=== PATIENT | male | born 1985 | race Caucasian/White ===

== ENCOUNTER 2021-10-21 21:20 | Inpatient (IN) | payer OTHER ==
[~2021-10-21] VITALS: Ht 182.9 cm; Wt 69.5 kg
[2021-10-21 22:19] LABS: HEMOGLOBIN 12.5 gm/dl (14.0-17.5); RED BLOOD COUNT 4.07 M/UL (4.20-5.50)
[2021-10-21 22:46] LABS: BUN/CREATININE RATIO 18 (0-10)
[2021-10-22 05:38] LABS: BUN/CREATININE RATIO 15 (0-10)
[2021-10-23 06:00] LABS: HEMOGLOBIN 12.1 gm/dl (14.0-17.5); RED BLOOD COUNT 4.01 M/UL (4.20-5.50); WHITE BLOOD COUNT 9.4 K/UL (4.5-11.0)
[2021-10-23 06:31] LABS: BUN/CREATININE RATIO 18 (0-10)
--- NOTE | 2021-10-23 12:39 | NUR ---
[facility] IN [facility] STATES THEY HAVE NO BEDS TO ACCEPT PT PER MD. STATES COULD CALL BACK TOMORROW
--- NOTE | 2021-10-23 15:58 | NUR ---
PT STATES "GOING OUTSIDE TO GET FRESH AIR" EXPLAINED IMPORTANCE OF STAYING ON FLOOR R/T PTS CONDITION AND NEED FOR MONITORING BUT PT STATES HE DOES NOT CARE, HE NEEDS TO GO OUTSIDE AND LEFT FLOOR. PORTABLE TELE MONITOR ON AND MD ON FLOOR AND AWARE
[2021-10-24 04:08] LABS: HIV AB/P24 AG SCREEN Non Reactive (Non Reactive)
[2021-10-24 07:11] LABS: HBSAG SCREEN Negative (Negative); HEP B CORE AB, TOT Negative (Negative); HEPATITIS B SURF AB QUANT >1000.0 mIU/mL (Immunity>9.9); RPR Non Reactive (Non Reactive)
[2021-10-24 22:09] LABS: CHLAMYDIA TRACHOMATIS, NAA Negative (Negative); NEISSERIA GONORRHOEAE, NAA Negative (Negative)
== END 2021-10-23 18:23 | disposition left against medical advice (07) | DRG 288 ==
LOC: ER1 21:20 → PROG CARE 10-22 00:26 → CDU 10-22 00:26 → PROG CARE 10-22 03:01
PROVIDERS: Internal Medicine; Student in an Organized Health Care Education/Training Program; ADMIT Internal Medicine
PROC: B24BZZZ Ultrasonography of Heart with Aorta (ICD-10-PCS; principal; 2021-10-22)
DX: I33.0 Acute and subacute infective endocarditis (principal); G92.8 Other toxic encephalopathy; E43 Unspecified severe protein-calorie malnutrition; I76 Septic arterial embolism; E72.20 Disorder of urea cycle metabolism, unspecified; E87.2 Acidosis; Z20.822 Contact with and (suspected) exposure to COVID-19; I05.9 Rheumatic mitral valve disease, unspecified; F19.10 Other psychoactive substance abuse, uncomplicated; E87.6 Hypokalemia; F17.210 Nicotine dependence, cigarettes, uncomplicated; Z90.49 Acquired absence of other specified parts of digestive tract; Z68.20 Body mass index [BMI] 20.0-20.9, adult
CPT/HCPCS: ECHO; 36415; 70450; 71045; 71260; 72125; 72170; 73030; 80053; 80202; 80307; 81001; 82140; 82306; 82550; 82553; 82607; 82746; 83605; 83735; 84100; 84439; 84443; 84484; 85025; 85027; 86140; 86317; 86592; 86704; 86803; 87040; 87340; 87389; 93005; 93306; 96365; 96366; 96367; 96375; 99285; G0480; J0696; J0878; J1650; J1885; J2543; J3370; J7030; J7050; J7070; Q9967; U0002